=== PATIENT | female | born 1980 | race Caucasian/White ===

== ENCOUNTER 2017-01-07 10:20 | Emergency (ER) | payer SELFPAY ==
[~2017-01-07] VITALS: Ht 160 cm; Wt 75.0 kg
[~2017-01-07 10:20] MED LIST: AMOXICILLIN500 MG PO; AMOXICILLIN875 MG OR; BACTRIM DS1 TAB PO; DOXYCYC MONO100 M1 PO; FLAGYL500 MG PO; HYDROXYZ HCL25 MG PO; LORTAB 10 OR; LORTAB 10-325 M1 TAB PO; LORTAB 5 OR; MEDDOSEPAK PO; MOTRIN800 MG/TAB PO; NO HOME MEDS; PERCOCET 5/325M1 TAB PO; PREVACID30 M3 PO; ULTRAM50 M1 PO; ZOFRAN ODT4 MG PO
[2017-01-07] MEDS ORDERED: PROZAC20 MG PO (10:29)
[2017-01-07] MEDS ORDERED: ZOFRAN ODT4 MG PO (11:00)
[2017-01-07] MEDS ORDERED: TRAMADOL HYDROC50 MG PO (11:00)
[2017-01-07] MEDS ORDERED: AUGMENTIN875TAB PO (12:58)
[2017-01-07] MEDS ORDERED: MOTRIN800 MG PO (12:58)
[2017-01-07] MEDS ORDERED: LORTAB 5-325 MG1 TAB PO (13:07)
[2017-01-07 13:19] VITALS: BP 138/76
== END 2017-01-07 13:19 | disposition home or self-care (01) | DRG 103 ==
LOC: ED 10:20
DX: G44.209 Tension-type headache, unspecified, not intractable (principal); J32.1 Chronic frontal sinusitis; M54.5 Low back pain; W17.89XA Other fall from one level to another, initial encounter; Y93.89 Activity, other specified; Y92.008 Other place in unspecified non-institutional (private) residence as the place of occurrence of the external cause

== ENCOUNTER 2017-07-25 18:42 | Emergency (ER) | payer SELFPAY ==
[~2017-07-25] VITALS: Ht 160 cm; Wt 94.8 kg
[~2017-07-25 18:42] MED LIST changes: +AUGMENTIN875TAB PO; +LORTAB 5-325 MG1 TAB PO; +MOTRIN800 MG PO; +PROZAC20 MG PO; +TRAMADOL HYDROC50 MG PO
[2017-07-25 19:31] LABS: URINE BILIRUBIN - DIPSTICK NEGATIVE (NEGATIVE); URINE BLOOD DIPSTICK NEGATIVE (NEGATIVE); URINE COLOR YELLOW; URINE GLUCOSE - DIPSTICK NEGATIVE (NEGATIVE); URINE KETONE NEGATIVE (NEGATIVE); URINE LEUK ESTERASE NEGATIVE (NEGATIVE); URINE NITRITE - DIPSTICK NEGATIVE (Negative); URINE PROTEIN - DIPSTICK NEGATIVE (NEG-TRACE); URINE UROBILINOGEN - DIPSTICK 0.2 E.U./dL (0.2)
[2017-07-25 19:34] LABS: URINE CLARITY SL CLOUDY
[2017-07-25] MEDS ORDERED: MEDDOSEPAK PO (20:51)
[2017-07-25] MEDS ORDERED: FLEXERIL PO (20:51)
[2017-07-25 21:00] VITALS: BP 130/85
== END 2017-07-25 21:15 | disposition home or self-care (01) | DRG 552 ==
LOC: ED 18:42
PROVIDERS: Emergency Medicine
DX: M51.36 Other intervertebral disc degeneration, lumbar region (principal); M54.5 Low back pain; M79.605 Pain in left leg; M79.604 Pain in right leg

== ENCOUNTER 2018-09-10 16:52 | Emergency (ER) | payer SELFPAY ==
[~2018-09-10] VITALS: Ht 160 cm; Wt 88.2 kg
[~2018-09-10 16:52] MED LIST changes: +FLEXERIL PO
[2018-09-10 17:33] LABS: URINE BILIRUBIN - DIPSTICK NEGATIVE (NEGATIVE); URINE BLOOD DIPSTICK NEGATIVE (NEGATIVE); URINE COLOR YELLOW; URINE GLUCOSE - DIPSTICK NEGATIVE (NEGATIVE); URINE KETONE NEGATIVE (NEGATIVE); URINE NITRITE - DIPSTICK NEGATIVE (Negative); URINE PH 7.5 (4.5-8.0); URINE PROTEIN - DIPSTICK TRACE mg/dL (NEG-TRACE); URINE UROBILINOGEN - DIPSTICK 0.2 E.U./dL (0.2)
[2018-09-10 17:36] LABS: URINE LEUK ESTERASE MODERATE (NEGATIVE)
[2018-09-10 17:52] LABS: URINE AMORPH SEDIMENT MANY hpf (NONE-FEW); URINE SQUAMOUS EPITHELIAL CELL FEW EPI/hpf (0-FEW)
[2018-09-10] MEDS ORDERED: KEFLEX500 M1 PO (18:53)
[2018-09-10 19:29] VITALS: BP 121/79
== END 2018-09-10 19:29 | disposition home or self-care (01) | DRG 552 ==
LOC: ED 16:52
DX: M54.5 Low back pain (principal); B37.49 Other urogenital candidiasis; R20.2 Paresthesia of skin; F17.200 Nicotine dependence, unspecified, uncomplicated

== ENCOUNTER 2019-04-04 13:19 | Emergency (ER) | payer OTHER ==
[~2019-04-04] VITALS: Ht 160 cm; Wt 82.6 kg
[~2019-04-04 13:19] MED LIST changes: +KEFLEX500 M1 PO
[2019-04-04 14:06] LABS: HEMATOCRIT 44.5 % (37.0-47.0); HEMOGLOBIN 14.7 g/dl (12.0-16.0); IMMATURE GRANULOCYTES 0.3 % (0.0-5.0); MEAN CELL VOLUME 86.7 fL CALC (80.0-100.0); MEAN CORPUSCULAR HGB 28.7 pG CALC (26.0-32.0); NEUT# 5.76 thou/uL (2.00-7.15); RED BLOOD COUNT 5.13 mill/uL (4.20-5.60); RED CELL DISTRI WIDTH 12.5 % (11.5-15.5)
[2019-04-04 14:07] LABS: GFR > 60 ML/MIN (>=60 (CALC)); GFR FOR AFR.AMER. > 60 ML/MIN (>=60 (CALC))
[2019-04-04 14:26] LABS: ANION GAP 14 (6-22 (CALC)); BUN 16 mg/dL (7-17); BUN/CREATININE RATIO 23 (12-20 (CALC)); CHLORIDE 105 mmol/l (95-108); CREATININE 0.7 mg/dL (0.5-1.0); GFR > 60 ML/MIN (>=60 (CALC)); GFR FOR AFR.AMER. > 60 ML/MIN (>=60 (CALC)); POTASSIUM 4.3 mmol/l (3.5-5.1); SODIUM 140 mmol/l (137-146)
[2019-04-04 14:28] LABS: CARBON DIOXIDE 25 mmol/l (22-30)
[2019-04-04] MEDS ORDERED: MOTRIN400 MG PO (15:04)
[2019-04-04] MEDS ORDERED: TRAMADOL HYDROC50 MG PO (15:04)
[2019-04-04] MEDS ORDERED: OFLOXACIN0.3 % OS (15:04)
[2019-04-04 15:14] VITALS: BP 132/71
== END 2019-04-04 15:26 | disposition home or self-care (01) ==
LOC: ED 13:19
PROVIDERS: Family Medicine
DX: H10.9 Unspecified conjunctivitis (principal); F17.210 Nicotine dependence, cigarettes, uncomplicated
CPT/HCPCS: Q9967

== ENCOUNTER 2019-08-12 17:31 | Emergency (ER) | payer OTHER ==
[~2019-08-12] VITALS: Ht 160 cm; Wt 86.0 kg
[~2019-08-12 17:31] MED LIST changes: +MOTRIN400 MG PO; +OFLOXACIN0.3 % OS
[2019-08-12 18:24] LABS: HEMATOCRIT 34.3 % (37.0-47.0); HEMOGLOBIN 11.8 g/dl (12.0-16.0); IMMATURE GRANULOCYTES 0.4 % (0.0-5.0); MEAN CELL VOLUME 84.1 fL CALC (80.0-100.0); MEAN CORPUSCULAR HGB 28.9 pG CALC (26.0-32.0); MEAN CORPUSCULAR HGB CONC 34.4 g/L CALC (32.0-36.0); NEUT# 3.93 thou/uL (2.00-7.15); RED BLOOD COUNT 4.08 mill/uL (4.20-5.60); RED CELL DISTRI WIDTH 12.9 % (11.5-15.5)
[2019-08-12 19:06] LABS: ALBUMIN 3.6 g/dL (3.2-5.0); ALKALINE PHOSPHATASE 64 u/l (38-126); BUN 7 mg/dL (7-17); BUN/CREATININE RATIO 15 (12-20 (CALC)); CARBON DIOXIDE 21 mmol/l (22-30); CHLORIDE 101 mmol/l (95-108); CREATININE 0.5 mg/dL (0.5-1.0); GFR > 60 ML/MIN (>=60 (CALC)); GFR FOR AFR.AMER. > 60 ML/MIN (>=60 (CALC)); POTASSIUM 3.8 mmol/l (3.5-5.1); SGOT/AST 24 u/l (14-36); TOTAL PROTEIN 6.9 g/dL (6.3-8.2)
[2019-08-12 19:08] LABS: ANION GAP 14 (6-22 (CALC)); BILIRUBIN, TOTAL 0.2 mg/dL (0.0-1.4); SODIUM 132 mmol/l (137-146)
[2019-08-12] MEDS ORDERED: TAM75CAP PO (19:17)
[2019-08-12 19:18] LABS: URINE BILIRUBIN - DIPSTICK NEGATIVE (NEGATIVE); URINE BLOOD DIPSTICK NEGATIVE (NEGATIVE); URINE COLOR YELLOW; URINE GLUCOSE - DIPSTICK NEGATIVE (NEGATIVE); URINE KETONE NEGATIVE (NEGATIVE); URINE LEUK ESTERASE NEGATIVE (NEGATIVE); URINE NITRITE - DIPSTICK NEGATIVE (Negative); URINE PH 5.5 (4.5-8.0); URINE PROTEIN - DIPSTICK TRACE mg/dL (NEG-TRACE); URINE SPECIFIC GRAVITY >=1.030; URINE UROBILINOGEN - DIPSTICK 0.2 E.U./dL (0.2)
[2019-08-12 19:50] VITALS: BP 128/66
== END 2019-08-12 19:49 | disposition home or self-care (01) ==
LOC: ED 17:31
PROVIDERS: Emergency Medicine
DX: O99.512 Diseases of the respiratory system complicating pregnancy, second trimester (principal); J11.1 Influenza due to unidentified influenza virus with other respiratory manifestations; O99.332 Smoking (tobacco) complicating pregnancy, second trimester; F17.200 Nicotine dependence, unspecified, uncomplicated; Z3A.18 18 weeks gestation of pregnancy

== ENCOUNTER 2020-01-21 08:39 | Emergency (ER) | payer OTHER ==
[~2020-01-21 08:39] MED LIST changes: +TAM75CAP PO
[2020-01-21] MEDS ORDERED: PRENATA3 PO (08:56)
[2020-01-21 09:04] LABS: HEMATOCRIT 33.7 % (37.0-47.0); HEMOGLOBIN 11.1 g/dl (12.0-16.0); IMMATURE GRANULOCYTES 0.5 % (0.0-5.0); MEAN CELL VOLUME 84.9 fL CALC (80.0-100.0); MEAN CORPUSCULAR HGB CONC 32.9 g/dL CAL (32.0-36.0); NEUT# 8.35 thou/uL (2.00-7.15); RED BLOOD COUNT 3.97 mill/uL (4.20-5.60); RED CELL DISTRI WIDTH 13.2 % (11.5-15.5)
[2020-01-21 09:21] LABS: ACT PARTIAL THROMBO TIME 28.6 SECONDS (20.0-32.5); INTERNATIONAL NORMALIZED RATIO 0.9 RATIO (0.7-1.3); PROTHROMBIN TIME 9.2 SECONDS (9.0-12.5)
[2020-01-21 09:35] LABS: ALBUMIN 3.2 g/dL (3.2-5.0); ANION GAP 12 (6-22 (CALC)); BUN 12 mg/dL (7-17); BUN/CREATININE RATIO 22 (12-20 (CALC)); CARBON DIOXIDE 21 mmol/l (22-30); CHLORIDE 108 mmol/l (95-108); CREATININE 0.5 mg/dL (0.5-1.0); GFR > 60 ML/MIN (>=60 (CALC)); GFR FOR AFR.AMER. > 60 ML/MIN (>=60 (CALC)); POTASSIUM 4.3 mmol/l (3.5-5.1); SGOT/AST 23 u/l (14-36); SODIUM 136 mmol/l (137-146); TOTAL PROTEIN 6.6 g/dL (6.3-8.2)
[2020-01-21 09:37] LABS: ALKALINE PHOSPHATASE 125 u/l (38-126); BILIRUBIN, TOTAL 0.4 mg/dL (0.0-1.4)
[2020-01-21 11:05] VITALS: BP 111/67
[2020-01-21 12:06] LABS: URINE BILIRUBIN - DIPSTICK NEGATIVE (NEGATIVE); URINE BLOOD DIPSTICK TRACE-INTACT (NEGATIVE); URINE COLOR YELLOW; URINE GLUCOSE - DIPSTICK NEGATIVE (NEGATIVE); URINE KETONE NEGATIVE (NEGATIVE); URINE LEUK ESTERASE NEGATIVE (NEGATIVE); URINE NITRITE - DIPSTICK NEGATIVE (Negative); URINE PH 6.5 (4.5-8.0); URINE PROTEIN - DIPSTICK NEGATIVE (NEG-TRACE); URINE SPECIFIC GRAVITY 1.015; URINE UROBILINOGEN - DIPSTICK 0.2 E.U./dL (0.2)
== END 2020-01-21 10:55 ==
LOC: ED 08:39
DX: G97.1 Other reaction to spinal and lumbar puncture (principal); O99.335 Smoking (tobacco) complicating the puerperium; F17.210 Nicotine dependence, cigarettes, uncomplicated; Y84.4 Aspiration of fluid as the cause of abnormal reaction of the patient, or of later complication, without mention of misadventure at the time of the procedure; R51 Headache

== ENCOUNTER 2022-08-21 08:54 | Emergency (ER) | payer OTHER ==
[~2022-08-21] VITALS: Ht 160 cm; Wt 86.3 kg
[~2022-08-21 08:54] MED LIST changes: +PRENATA3 PO
[2022-08-21] MEDS ORDERED: MOTRIN800 MG PO (10:52)
[2022-08-21] MEDS ORDERED: CYCLOBENZAPRINE10 MG PO (10:52)
[2022-08-21] MEDS ORDERED: PERCOCET 5/325M1 TAB PO (10:52)
[2022-08-21 10:54] VITALS: BP 146/83
== END 2022-08-21 11:00 | disposition home or self-care (01) ==
LOC: ED 08:54
DX: M54.50 Low back pain, unspecified (principal); F31.9 Bipolar disorder, unspecified; F17.210 Nicotine dependence, cigarettes, uncomplicated

== ENCOUNTER 2022-12-09 09:36 | Emergency (ER) | payer OTHER ==
[~2022-12-09] VITALS: Ht 160 cm; Wt 80.7 kg
[~2022-12-09 09:36] MED LIST changes: +CYCLOBENZAPRINE10 MG PO
[2022-12-09 10:06] VITALS: BP 136/85
[2022-12-09 10:30] VITALS: BP 133/77
[2022-12-09 11:00] VITALS: BP 147/98
[2022-12-09] MEDS ORDERED: CYCLOBENZAPRINE10 MG PO (12:55)
[2022-12-09] MEDS ORDERED: IBUPROFEN600 MG PO (12:55)
[2022-12-09 13:12] VITALS: BP 147/98
== END 2022-12-09 13:15 | disposition home or self-care (01) ==
LOC: ED 09:36
DX: M54.50 Low back pain, unspecified (principal); F31.9 Bipolar disorder, unspecified; F17.210 Nicotine dependence, cigarettes, uncomplicated

== ENCOUNTER 2024-02-17 14:59 | Emergency (ER) | payer SELFPAY ==
[~2024-02-17] VITALS: Ht 160 cm; Wt 93.3 kg
[2024-02-17] VITALS (11 sets, daily range): BP systolic 100–140; BP diastolic 47–79
[~2024-02-17 14:59] MED LIST changes: +IBUPROFEN600 MG PO
[2024-02-17] MEDS ORDERED: MORPHINE SULFATE 4 MG/ML VIAL IV ONE ×2 (16:40→18:40)
[2024-02-17] MEDS ORDERED: ONDANSETRON HCl 4 MG/2 ML SDV IV ONE (16:40)
[2024-02-17] MEDS ORDERED: ORPHENADRINE CITRATE 30 MG/ML AMP IV ONE (16:40)
[2024-02-17] MEDS ORDERED: KETOROLAC TROMETHAMINE 30 MG/ML SDV IV ONE (16:40)
[2024-02-17 17:10] LABS: BASO% 0.4 % (0-3); EOS% 1.6 % (0-8); IMMATURE GRANULOCYTES 0.2 % (0.0-5.0); MEAN CELL VOLUME 83.9 fL CALC (80.0-100.0); MEAN CORPUSCULAR HGB 27.8 pG CALC (26.0-32.0); MEAN CORPUSCULAR HGB CONC 33.1 g/dL CAL (32.0-36.0); MONO% 6.3 % (2-13); NEUT# 8.59 thou/uL (2.00-7.15); NEUT% 73.5 % (42-76); RED BLOOD COUNT 5.15 mill/uL (4.20-5.60)
[2024-02-17 17:12] LABS: HEMATOCRIT 43.2 % (37.0-47.0); HEMOGLOBIN 14.3 g/dl (12.0-16.0)
[2024-02-17 17:26] LABS: BILIRUBIN, TOTAL 0.4 mg/dL (0.02-1.3); CREATININE 0.6 mg/dL (0.5-1.0); POTASSIUM 3.9 mmol/l (3.5-5.1)
[2024-02-17 17:28] LABS: ALBUMIN 4.3 g/dL (3.2-5.0); TOTAL PROTEIN 8.2 g/dL (6.3-8.2)
[2024-02-17] MEDS ORDERED: NAPROXEN500 MG PO (18:53)
[2024-02-17] MEDS ORDERED: TRAMADOL HYDROC50 M1 PO (18:53)
[2024-02-17] MEDS ORDERED: FLEXERIL5 M1 PO (18:53)
== END 2024-02-17 19:25 | disposition home or self-care (01) | DRG 552 ==
LOC: ED 14:59
PROVIDERS: Family Medicine
DX: M54.6 Pain in thoracic spine (principal); M54.50 Low back pain, unspecified; E66.9 Obesity, unspecified; F31.9 Bipolar disorder, unspecified; F17.200 Nicotine dependence, unspecified, uncomplicated